=== PATIENT | male | born 1975 | race Caucasian/White ===

== ENCOUNTER 2017-11-16 10:59 | Emergency (ER) | payer MEDICAID ==
[~2017-11-16] VITALS: Ht 188 cm; Wt 74.8 kg
[~2017-11-16 10:59] MED LIST: ATAZ300C PO; AZIT250T13 PO; CITA10TA17 PO; EMTR1TAB12 PO; OMEG500C3 PO; RITO100T PO
[2017-11-16 11:02] VITALS: BP 131/85
--- NOTE | 2017-11-16 11:42 | NUR ---
CALLED [facility] FOR TRANSPORT ETA OF 20 MINS WAS GIVEN. TRIP#[id number]
== END 2017-11-16 12:47 | disposition home or self-care (01) ==
LOC: ER 11:01
DX: S52.501A Unspecified fracture of the lower end of right radius, initial encounter for closed fracture (principal); F32.9 Major depressive disorder, single episode, unspecified; Z59.0 Homelessness; W19.XXXA Unspecified fall, initial encounter; Y93.89 Activity, other specified; Y92.89 Other specified places as the place of occurrence of the external cause; Y99.8 Other external cause status
CPT/HCPCS: 73080-TC; 73090-TC; A4606; Z7610